=== PATIENT | female | born 1955 | race Caucasian/White ===

== ENCOUNTER → 2022-07-18 | Outpatient (CLI) | payer MEDICARE, BC ==
[~2022-07-18] MED LIST: AMITRIPTYLINE H10 MG PO; AMLODIPINE BESY10 MG PO; AMOXICILLIN875 MG PO; ASPIR 8181 MG PO; ATORVASTATIN CA40 MG PO; CYCLOBENZAPRINE10 MG PO; CYMBALTA30 MG PO; DIATRIZOATE MEGL/DIATRIZOA SOD 120 ML BTL PO ONE; ESTRACE42.5 GM TOP; LOTEMAX5 ML IO; MELOXICAM7.5 MG PO; OMEGA-31000 MG PO; OSPHENA PO; POTASSIUM CHLO10 ME1 PO; RESTASIS1 EACH IO; VITAMIN D31000 UNIT PO
== END ==
LOC: DX 10:43
PROVIDERS: ATTEND Internal Medicine Gastroenterology
DX: R13.19 Other dysphagia (principal)
CPT/HCPCS: 74220; Q9963